=== PATIENT | female | born 1995 | race Caucasian/White ===

== ENCOUNTER 2017-02-05 19:29 | Emergency (ER) | payer OTHER | END 2017-02-05 20:01 | disposition home or self-care (01) | LOC: ER 19:29 | DX: H66.003 Acute suppurative otitis media without spontaneous rupture of ear drum, bilateral (principal); Z88.1 Allergy status to other antibiotic agents; Z79.3 Long term (current) use of hormonal contraceptives | CPT/HCPCS: 99282 ==